=== PATIENT | male | born 1980 | race Two or more races ===

== ENCOUNTER 2017-12-14 18:35 | Emergency (ER) | payer MEDICAID, OTHER ==
[~2017-12-14] VITALS: Ht 175.3 cm; Wt 78.9 kg
[2017-12-14 18:59] VITALS: BP 108/60
[2017-12-14 20:16] LABS: Urine Blood Negative /uL (Negative); Urine Specific Gravity 1.034 (1.001-1.035)
[2017-12-14 20:22] LABS: Urine WBC 5 /hpf (0 - 3)
[2017-12-14 20:23] LABS: Urine Bacteria NONE SEEN /hpf (None Seen); Urine Mucus FEW (None Seen)
[2017-12-14 20:35] LABS: Albumin 4.2 g/dL (3.4-5.0); BUN/Creatinine Ratio 9.9; Calcium 8.6 mg/dL (8.5-10.1); Potassium 3.4 mmol/L (3.5-5.1)
[2017-12-14 20:37] LABS: Bilirubin, Total 1.2 mg/dL (0.2-1.0); Total Protein 7.8 g/dL (6.4-8.2)
[2017-12-14 20:46] LABS: Basophils # (auto) 0 uL; Basophils % (auto) 0.4 % (0.0-2.0); Eosinophils # (auto) 0 uL; Eosinophils % (auto) 0.2 % (0.0-7.0); Hematocrit 43.2 % (41.0-53.0); Hemoglobin 15.1 g/dL (13.5-17.5); Lymphocytes # (auto) 0.7 uL; Lymphocytes % (auto) 9.3 % (10.0-50.0); Mean Corpuscular Hemoglobin 29.7 pg (28.0-32.0); Mean Corpuscular Hgb Conc. 34.9 g/dL (32.0-36.0); Mean Corpuscular Volume 85.2 fL (80.0-100.0); Monocytes # (auto) 0.4 uL; Monocytes % (auto) 5.6 % (0.0-12.0); Neutrophils # (auto) 6.7 uL; Neutrophils % (auto) 84.5 % (37.0-80.0); Nucleated Red Blood Cells % 0.1 %; Platelet Count (auto) 252 10^3/uL (140-450); Red Blood Cells 5.07 10^6/uL (4.5-5.90); Red Cell Distribution Width 13.6 % (11.8-14.3)
== END 2017-12-15 02:46 | disposition left against medical advice (07) ==
LOC: ER 18:35
DX: R11.2 Nausea with vomiting, unspecified (principal); R10.84 Generalized abdominal pain; Z53.21 Procedure and treatment not carried out due to patient leaving prior to being seen by health care provider
CPT/HCPCS: 36415; 80053; 81001; 85025